=== PATIENT | male | born 1990 | race Hispanic/Latino ===

== ENCOUNTER 2016-10-03 01:43 | Emergency (ER) | payer MEDICAID ==
[2016-10-03 01:59] VITALS: BP 118/76; PULSE 80; RESP 18; TEMP 98.5; O2SAT 100
--- NOTE | 2016-10-03 02:15 | ED PDOC ---
- ECG O2 Sat by Pulse Oximetry: 100
--- NOTE | 2016-10-03 02:15 | ED PDOC ---
HPI: Psych/Substance Abuse Time Seen by Provider: 10/03/16 02:06 Chief Complaint (Nursing): Anxiety Chief Complaint (Provider): Anxiety History Per: Patient Additional Complaint(s): Pt ambulated to ER for eval of anxiety - pt in Police custody Past Medical History Vital Signs: Last Vital Signs Temp 98.5 F 10/03/16 01:57 Pulse 80 10/03/16 01:57 Resp 18 10/03/16 01:57 BP 118/76 10/03/16 01:57 Pulse Ox 100 10/03/16 01:57 - Immunization History Hx Tetanus Toxoid Vaccination: Yes Hx Influenza Vaccination: No Hx Pneumococcal Vaccination: No - Home Medications Home Medications: Ambulatory Orders Medication Instructions Recorded Meloxicam [Mobic] 7.5 mg PO DAILY PRN #30 tab 10/05/15 Methocarbamol [Robaxin] 500 mg PO Q8 #30 tab 10/05/15 - Allergies Allergies/Adverse Reactions: Allergies Allergy/AdvReac Type Severity Reaction Status Date / Time No Known Allergies Allergy Verified 10/05/15 19:39 - ECG O2 Sat by Pulse Oximetry: 100
== END 2016-10-03 05:00 | disposition home or self-care (01) ==
LOC: H.ER 01:43
DX: F41.9 Anxiety disorder, unspecified (principal)

== ENCOUNTER 2016-11-04 23:53 | Emergency (ER) | payer MEDICAID, OTHER ==
[2016-11-05 00:07] VITALS: BP 121/72; PULSE 110; RESP 16; TEMP 98.2; O2SAT 100
[2016-11-05] MEDS ORDERED: Lidocaine 2% w Epi 1:100,000 Inj IJ ONE (00:52)
[2016-11-05] MEDS ORDERED: Lidocaine/Epi 1% 1:100000 20 ML IJ ONE (00:53)
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
--- NOTE | 2016-11-05 02:12 | CT ---
EXAM: CT Head Without Intravenous Contrast CLINICAL HISTORY: 26 years old, male; Injury or trauma; Fall; Initial encounter; Concussion / head injury; Without loss of consciousness TECHNIQUE: Axial computed tomography images of the head/brain without intravenous contrast. This CT exam was performed using one or more of the following dose reduction techniques: automated exposure control, adjustment of the mA and/or kV according to patient size, and/or use of iterative reconstruction technique. Coronal and sagittal reformatted images were created and reviewed. EXAM DATE/TIME: Exam ordered 11/05/2016 12:52 AM COMPARISON: No relevant prior studies available. FINDINGS: Brain: No intracranial hemorrhage. Huertas-white matter differentiation is well maintained and there is no finding to suggest acute edema. Ventricles: Unremarkable. No ventriculomegaly. Bones/joints: Suggestion of nasal fracture series 3 image 5. There is no evidence of acute fracture of the calvarium. Pterygoid plates intact, zygomatic arch is intact. Coronal evaluation of the orbits with no evidence to suggest blowout fracture. Intraconal fat is symmetric and normal limits bilaterally. Soft tissues: There is soft tissue swelling overlying the bridge of the nose Sinuses: Paranasal sinuses within normal limits. Mastoid air cells: Mastoid air cells are clear. IMPRESSION: No calvarial fractures or intracranial hemorrhage. Probable minimally displaced nasal fractures.
--- NOTE | 2016-11-05 02:22 | CT ---
EXAM: CT Maxillofacial Without Intravenous Contrast CLINICAL HISTORY: 26 years old, male; Injury or trauma; Fall; Initial encounter; Concussion /head injury; Without loss of consciousness; Additional info: Facial injury, left periorbital pain TECHNIQUE: Axial computed tomography images of the face without intravenous contrast. This CT exam was performed using one or more of the following dose reduction techniques: automated exposure control, adjustment of the mA and/or kV according to patient size, and/or use of iterative reconstruction technique. Coronal and sagittal reformatted images were created and reviewed. EXAM DATE/TIME: Exam ordered 11/05/2016 12:52 AM COMPARISON: No relevant prior studies available. FINDINGS: Bones/joints: There is very mild irregularity of the nasal bones, minimally displaced nasal fracture questioned, particularly noting apparent overlying soft tissue swelling. Zygomatic arches are bilaterally intact. There is no evidence to suggest fracture of the skull base. The included portions of the cervical spine show no evidence of fractures. No fracture of the mandible is seen. As seen series 602 sagittal image 61, there is suspicion for fracture of the nasal spine with minimal displacement. Soft tissues: There is redemonstration of prominent soft tissue swelling overlying the bridge of the nose. Orbits: Unremarkable. Sinuses: The paranasal sinuses are clear. No air-fluid levels. Mastoid air cells: Mastoid air cells are bilaterally within normal limits. Dental: There is incidental note of lucency adjacent to and likely impaction of the right posterior maxillary molars, dental correlation recommended. Small amount of lucency surrounding the most posterior left maxillary molar. Nasopharynx: There is an incidental finding of mildly prominent adenoids and palatine tonsils. IMPRESSION: Continuing suspicion for minimally displaced fracture of the nasal bones, as well as fracture of the anterior nasal spine. No findings to suggest fracture of the orbits or cervical spine. Paranasal sinuses clear. Correlation with dental examination suggested regarding incidentally seen findings in the teeth, these findings are not related to the present acute trauma
--- NOTE | 2016-11-05 10:22 | RAD ---
PROCEDURE: Left scapula dated 11/05/2016. Two views left scapula. HISTORY: trauma COMPARISON: No prior. FINDINGS: BONES: The visualized scapula appears intact. Remaining on visualized osseous structures are also intact. JOINTS: Normal. Glenohumeral and acromioclavicular joints preserved. No osteoarthritis. SOFT TISSUES: Normal. OTHER FINDINGS: None. IMPRESSION: No evidence of acute displaced fracture of the scapula. If symptoms persist consider followup CT scan.
== END 2016-11-05 02:53 | disposition home or self-care (01) ==
LOC: H.ER 23:53
DX: S09.90XA Unspecified injury of head, initial encounter (principal); S02.2XXA Fracture of nasal bones, initial encounter for closed fracture; S01.01XA Laceration without foreign body of scalp, initial encounter; W19.XXXA Unspecified fall, initial encounter; Y04.0XXA Assault by unarmed brawl or fight, initial encounter

== ENCOUNTER 2017-06-29 07:01 | Inpatient (IN) | payer OTHER ==
[2017-06-29 07:09] VITALS: BMI 26.5
--- NOTE | 2017-06-29 07:57 | ED PDOC ---
HPI: Altered Mental Status Time Seen by Provider: 06/29/17 07:05 Chief Complaint (Nursing): Altered Mental Status Chief Complaint (Provider): Altered Mental Status History Per: Patient, Family (mother and girlfriend) History/Exam Limitations: None Onset/Duration Of Symptoms: Days (x1) Current Symptoms Are (Timing): Still Present Description Of Symptoms: Other (somnolent) Use Of Anticoag/Antiplatlets: No Additional Complaint(s): Natanael Gayle is a 27 year old male, with a past medical history of chronic back problems, and herniated disc, who was brought to the emergency department by EMS accompanied by mother and girlfriend after patient took an unknown amount of Zoldipem and Mirtazapine last night. Patient answers questions but is very somnolent. No further medical complaints. PMD: Dr. Esha Maradiaga (has not met him yet per girlfriend) Past Medical History Reviewed: Historical Data, Nursing Documentation, Vital Signs Vital Signs: Last Vital Signs Temp 98.5 F 06/29/17 07:28 Pulse 105 H 06/29/17 07:28 Resp 18 06/29/17 07:28 BP 152/95 H 06/29/17 07:28 Pulse Ox 97 06/29/17 07:28 - Medical History PMH: Anxiety Denies: Diabetes, Hepatitis, HIV, HTN, Seizures, Sexually Transmitted Disease - Surgical History Surgical History: No Surg Hx - Family History Family History: States: Unknown Family Hx - Social History Current smoker - smoking cessation education provided: No Alcohol: None Drugs: Denies - Immunization History Hx Tetanus Toxoid Vaccination: Yes Hx Influenza Vaccination: No Hx Pneumococcal Vaccination: No - Home Medications Home Medications: Ambulatory Orders Medication Instructions Recorded Mirtazapine [Remeron] 2 tab PO HS 06/29/17 Zolpidem Tartrate [Ambien] 10 mg PO HS 06/29/17 - Allergies Allergies/Adverse Reactions: Allergies Allergy/AdvReac Type Severity Reaction Status Date / Time No Known Allergies Allergy Verified 10/05/15 19:39 Review of Systems ROS Statement: Except As Marked, All Systems Reviewed And Found Negative Constitutional: Positive for: Other (appears somnolent) Physical Exam - Reviewed Nursing Documentation Reviewed: Yes Vital Signs Reviewed: Yes - Physical Exam Appears: Positive for: Non-toxic Head Exam: Positive for: ATRAUMATIC, NORMAL INSPECTION Skin: Positive for: Normal Color, Warm, Dry Neck: Positive for: Normal, Painless ROM, Supple Cardiovascular/Chest: Positive for: Regular Rate, Rhythm. Negative for: Murmur Respiratory: Positive for: Normal Breath Sounds. Negative for: Respiratory Distress Gastrointestinal/Abdominal: Positive for: Soft Extremity: Positive for: Normal ROM Neurologic/Psych: Positive for: Alert (somnolent) Comments: Appears somnolent - Laboratory Results Result Diagrams: 06/29/17 08:35 06/29/17 09:40 - ECG ECG Rhythm: Positive for: Sinus Rhythm (normal) Interpretation Of ECG: No ST elevation, No ST depression Rate: 100 O2 Sat by Pulse Oximetry: 97 (RA) Pulse Ox Interpretation: Normal - Critical Care Total Time (In Min): 20 Medical Decision Making Medical Decision Making: Initial Impression: AMS r/o electrolyte imbalance, drug abuse Initial Plan: --Acetaminophen --Alcohol serum --Basic Metabolic Panel --Drug screen, urine --Salicylate --CBC w/ differential --Urinalysis 1:1 sitter --reevaluation 10:10 -Elevated Tylenol noted. Further history was obtained now that girlfriend is here. According to her, patient has a history of bipolar disorder and anxiety. He was recently placed on new medications but took a lot more than usual. Patient has been taking Tylenol at home "to the max". -According to poison control, place patient on Acetadote. Ordered the first dose and paged Dr. Francis. Called the claim review medical director to admit patient to ICU. 10:15 -Dr. Francis accepted the patient pt. noted to have cocaine in urine. pt reevaluated. family at bedside. answered questions and discussed plan. pt airway intact. pt intermittently has episodes of agitation and tries to jump out of bed, but then calms down. Scribe Attestation: Documented by Jt Courtney, acting as a scribe for Chris Lipscomb MD Provider Scribe Attestation: All medical record entries made by the Scribe were at my direction and personally dictated by me. I have reviewed the chart and agree that the record accurately reflects my personal performance of the history, physical exam, medical decision making, and the department course for this patient. I have also personally directed, reviewed, and agree with the discharge instructions and disposition. Disposition - Clinical Impression Clinical Impression: Altered mental status, Tylenol overdose - Patient ED Disposition Is Patient to be Admitted: Yes Counseled Patient/Family Regarding: Diagnosis - Disposition Disposition Time: 09:00 Condition: STABLE - Pt Status Changed To: Hospital Disposition Of: Inpatient - Admit Certification Admit to Inpatient:: After my assessment, the patient will require hospitalization for at least two midnights. This is because of the severity of symptoms shown, intensity of services needed, and/or the medical risk in this patient being treated as an outpatient.
[2017-06-29 08:41] LABS: BASO % 0.2 % (0.0-2.0); EOS % 0.3 % (0.0-4.0); HEMATOCRIT 46.2 % (35.0-51.0); LYMPH # 0.6 K/uL (1.0-4.3); LYMPH % 7.9 % (20.0-40.0); MEAN CELL VOLUME 86.1 fl (80.0-94.0); MEAN CORPUSCULAR HEMOGLOBIN 29.8 pg (27.0-31.0); MEAN CORPUSCULAR HGB CONC 34.6 g/dL (33.0-37.0); MEAN PLATELET VOLUME 7.4 fl (7.2-11.7); MONO # 0.7 K/uL (0.0-0.8); MONO % 8.8 % (0.0-10.0); NEUT # 6.2 K/uL (1.8-7.0); NEUT % 82.8 % (50.0-75.0); PLATELET COUNT 335 K/uL (130-400); RED CELL DISTRIBUTION WIDTH 12.3 % (11.5-14.5); WHITE BLOOD COUNT 7.5 K/uL (4.8-10.8)
[2017-06-29] MEDS ORDERED: Sodium Chloride 0.9% 1,000 ML IV STA (08:41)
[2017-06-29 08:57] LABS: ALCOHOL SERUM < 10 mg/dl (0-10); BLOOD UREA NITROGEN 14 mg/dl (9-20); CALCIUM 9.9 mg/dL (8.4-10.2); CARBON DIOXIDE 25 mmol/L (22-30); CHLORIDE 104 mmol/L (98-107); GFR AFRICAN-AMERICAN > 60; GLUCOSE,RANDOM 116 mg/dL (75-110); SODIUM 141 mmol/l (132-148)
[2017-06-29 09:38] LABS: NEUTROPHIL 81 % (42-75); REACTIVE LYMPHOCYTES 2 % (0-0); TOTAL CELLS COUNTED 100
[2017-06-29 09:44] LABS: RBC URINE 1 /hpf (0-3); URINE BILIRUBIN NEGATIVE (NEGATIVE); URINE BLOOD NEGATIVE (NEGATIVE); URINE COLOR YELLOW (YELLOW); URINE GLUCOSE (UA) NEG (Normal); URINE KETONE NEGATIVE (NEGATIVE); URINE LEUKOCYTE ESTERASE NEG Leu/uL (Negative); URINE PROTEIN NEGATIVE (NEGATIVE); URINE UROBILINOGEN 0.2-1.0 mg/dL (0.2-1.0); WBC URINE < 1 /hpf (0-5)
[2017-06-29] MEDS ORDERED: WATER IVPB STA ×3 (10:00→12:41)
[2017-06-29] MEDS ORDERED: DEXTROSE 5% IVPB STA ×3 (10:00→12:41)
[2017-06-29] MEDS ORDERED: ACETYLCYSTEINE IVPB STA ×3 (10:00→12:41)
[2017-06-29 10:01] LABS: PARTIAL THROMBOPLASTIN TIME 30.1 Seconds (25.6-37.1)
[2017-06-29 10:05] LABS: ALB/GLOB RATIO 1.3 (1.0-2.1); ALKALINE PHOSPHATASE 59 U/L (38-126); ALT/SGPT 72 U/L (21-72); AST/SGOT 50 U/L (17-59); BILIRUBIN,TOTAL 0.4 mg/dl (0.2-1.3); BLOOD UREA NITROGEN 13 mg/dl (9-20); CALCIUM 9.5 mg/dL (8.4-10.2); CARBON DIOXIDE 26 mmol/L (22-30); CHLORIDE 105 mmol/L (98-107); GFR AFRICAN-AMERICAN > 60; GLUCOSE,RANDOM 111 mg/dL (75-110); POTASSIUM 4.1 MMOL/L (3.6-5.0); SODIUM 139 mmol/l (132-148); TOTAL PROTEIN 7.6 G/DL (6.3-8.2)
--- NOTE | 2017-06-29 12:30 | CP.CCUPN ---
CCU Subjective - Physician Review Subjective (Free Text): 27M admitted from ED for somnolence and lethargy post ingestion of multiple doses of Ambien and possible other pain medications in order to sleep last evening. Arrived to ED at 728AM post-ingestion overnight. Time of ingestion unknown and not reported by family / girlfriend. Patient is uncooperative when awakened, irate and not providing any useful history. He is on 1:1. UDS showed + cocaine and a Acetaminophen level of 44. Home meds only include Remeron and Ambien, but mother states he takes Percocet, too. Other vitals and I/O's reviewed. Allergies: NKDA ROS: Uncooperative with questioning. No other pertinent negs or positives on 10 + system review. PMSFH: All other Nursing and physician documentation reviewed to date; no new pertinent info noted relevant to current medical problems. CXR: none ordered in ER. EKG: none ordered in ER. IMPRESSION / MAJOR PROBLEMS NOW: 1. Multiple Medication OD with Ambien and Remeron, also Tylenol 2. Hypertensive response 2' Agitation 3. h/o Bi-Polar and Anxiety Disorder 4. h/o Chronic LBP syndrome with Herniated Disc Disease 2 Fall 3 yrs ago. PLAN: 1. Acetadote as per Poison Control recs. 2. IVF hydration. 3. Neurochecks/ Seizure precautions. 4. Maintain 1:1; Psychiatry eval. 5. As mental status has improved over time from time of initial ER eval, and he is now awake and interactive with Mother and Girlfriend, could continue observation and mgmt on Telemetry unit; unless there is a unexpected deterioration in LFTs, or if he needs airway protection. 6. Would hold narcotics for pain control if possible. 7. Woiuld not treat isolated hypertensive repsonses, unless sustained elevations in MAP above 110-120. CCU Objective - Vital Signs / Intake & Output Vital Signs (Last 4 hours): Vital Signs Pulse Pulse Ox 06/29/17 10:57 100 H 06/29/17 10:23 100 H 97 Intake and Output (Last 8hrs): Intake & Output 06/28/17 06/29/17 06/29/17 22:59 06:59 14:59 Weight 215 lb - Physical Exam Physical Exam Limitations: Positive for: Uncooperative Head: Positive for: Atraumatic, Normocephalic Pupils: Positive for: PERRL. Negative for: Pinpoint Extroacular Muscles: Positive for: EOMI. Negative for: Gaze Palsy Conjunctiva: Positive for: Normal Mouth: Positive for: Moist Mucous Membranes Neck: Negative for: Meningeal Signs, JVD Respiratory/Chest: Positive for: Clear to Auscultation. Negative for: Accessory Muscle Use, Wheezes Cardiovascular: Positive for: Regular Rate and Rhythm, Normal S1, S2, Tachycardic Abdomen: Positive for: Normal Bowel Sounds. Negative for: Tenderness, Distention, Mass/Organomegaly Upper Extremity: Positive for: Normal Inspection Lower Extremity: Positive for: Normal Inspection, Other (HOME INCARCERATION GPS ANKLE BRACELET OVER THE RIGHT ANKLE. ) Skin: Positive for: Warm, Dry, Other (muliple large tattoos scattered over entire body. ). Negative for: Rashes - Medications Active Medications: Active Medications Generic Name Dose Route Start Last Admin Trade Name Freq PRN Reason Stop Dose Admin Sodium Chloride 1,000 mls @ 150 mls/hr 06/29/17 08:41 06/29/17 08:42 Sodium Chloride 0.9% IV 06/29/17 15:20 150 mls/hr .[id number] STA Administration - Patient Studies Lab Studies: Lab Studies 06/29/17 06/29/17 06/29/17 Range/Units 09:40 09:40 09:39 WBC (4.8-10.8) K/uL RBC (4.40-5.90) Mil/uL Hgb (12.0-18.0) g/dL Hct (35.0-51.0) % MCV (80.0-94.0) fl MCH (27.0-31.0) pg MCHC (33.0-37.0) g/dL RDW (11.5-14.5) % Plt Count (130-400) K/uL MPV (7.2-11.7) fl Neut % (Auto) (50.0-75.0) % Lymph % (Auto) (20.0-40.0) % [place] % (Auto) (0.0-10.0) % Eos % (Auto) (0.0-4.0) % Baso % (Auto) (0.0-2.0) % Neut # (1.8-7.0) K/uL Lymph # (1.0-4.3) K/uL [place] # (0.0-0.8) K/uL Eos # (0.0-0.7) K/uL Baso # (0.0-0.2) K/uL Neutrophils % (Manual) (42-75) % Band Neutrophils % (0-2) % Lymphocytes % (Manual) (20-50) % Reactive Lymphs % (0-0) % Monocytes % (Manual) (0-10) % Platelet Estimate (NORMAL) RBC Morphology (NORMAL) PT 10.9 (9.8-13.1) Seconds INR 1.0 (0.9-1.2) APTT 30.1 (25.6-37.1) Seconds Sodium 139 (132-148) mmol/l Potassium 4.1 (3.6-5.0) MMOL/L Chloride 105 (98-107) mmol/L Carbon Dioxide 26 (22-30) mmol/L Anion Gap 12 (10-20) BUN 13 (9-20) mg/dl Creatinine 1.0 (0.8-1.5) mg/dl Est GFR ( Amer) > 60 Est GFR (Non-Af Amer) > 60 Random Glucose 111 H (75-110) mg/dL Calcium 9.5 (8.4-10.2) mg/dL Total Bilirubin 0.4 (0.2-1.3) mg/dl AST 50 (17-59) U/L ALT 72 (21-72) U/L Alkaline Phosphatase 59 (38-126) U/L Total Protein 7.6 (6.3-8.2) G/DL Albumin 4.4 (3.5-5.0) g/dL Globulin 3.3 (2.2-3.9) gm/dL Albumin/Globulin Ratio 1.3 (1.0-2.1) Urine Color (YELLOW) Urine Clarity (Clear) Urine pH (5.0-8.0) Ur Specific [place] (1.003-1.030) Urine Protein (NEGATIVE) mg/dL Urine Glucose (UA) (Normal) mg/dL Urine Ketones (NEGATIVE) mg/dL Urine Blood (NEGATIVE) Urine Nitrate (NEGATIVE) Urine Bilirubin (NEGATIVE) Urine Urobilinogen (0.2-1.0) mg/dL Ur Leukocyte Esterase (Negative) Jhony/uL Urine RBC (Auto) (0-3) /hpf Urine Microscopic WBC (0-5) /hpf Ur Squamous Epith Cells (0-5) /hpf Salicylates < 1.0 mg/dl Urine Opiates Screen (NEGATIVE) Urine Methadone Screen (NEGATIVE) Acetaminophen (10.0-30.0) ug/ml Ur Barbiturates Screen (NEGATIVE) Ur Phencyclidine Scrn (NEGATIVE) Ur Amphetamines Screen (NEGATIVE) U Benzodiazepines Scrn (NEGATIVE) U Oth Cocaine Metabols (NEGATIVE) U Cannabinoids Screen (NEGATIVE) Alcohol, Quantitative (0-10) mg/dl 06/29/17 06/29/17 06/29/17 Range/Units 09:00 09:00 08:36 WBC (4.8-10.8) K/uL RBC (4.40-5.90) Mil/uL Hgb (12.0-18.0) g/dL Hct (35.0-51.0) % MCV (80.0-94.0) fl MCH (27.0-31.0) pg MCHC (33.0-37.0) g/dL RDW (11.5-14.5) % Plt Count (130-400) K/uL MPV (7.2-11.7) fl Neut % (Auto) (50.0-75.0) % Lymph % (Auto) (20.0-40.0) % [place] % (Auto) (0.0-10.0) % Eos % (Auto) (0.0-4.0) % Baso % (Auto) (0.0-2.0) % Neut # (1.8-7.0) K/uL Lymph # (1.0-4.3) K/uL [place] # (0.0-0.8) K/uL Eos # (0.0-0.7) K/uL Baso # (0.0-0.2) K/uL Neutrophils % (Manual) (42-75) % Band Neutrophils % (0-2) % Lymphocytes % (Manual) (20-50) % Reactive Lymphs % (0-0) % Monocytes % (Manual) (0-10) % Platelet Estimate (NORMAL) RBC Morphology (NORMAL) PT (9.8-13.1) Seconds INR (0.9-1.2) APTT (25.6-37.1) Seconds Sodium 141 (132-148) mmol/l Potassium 4.0 (3.6-5.0) MMOL/L Chloride 104 (98-107) mmol/L Carbon Dioxide 25 (22-30) mmol/L Anion Gap 16 (10-20) BUN 14 (9-20) mg/dl Creatinine 1.0 (0.8-1.5) mg/dl Est GFR ( Amer) > 60 Est GFR (Non-Af Amer) > 60 Random Glucose 116 H (75-110) mg/dL Calcium 9.9 (8.4-10.2) mg/dL Total Bilirubin (0.2-1.3) mg/dl AST (17-59) U/L ALT (21-72) U/L Alkaline Phosphatase (38-126) U/L Total Protein (6.3-8.2) G/DL Albumin (3.5-5.0) g/dL Globulin (2.2-3.9) gm/dL Albumin/Globulin Ratio (1.0-2.1) Urine Color Yellow (YELLOW) Urine Clarity Clear (Clear) Urine pH 5.0 (5.0-8.0) Ur Specific [place] 1.033 H (1.003-1.030) Urine Protein Negative (NEGATIVE) mg/dL Urine Glucose (UA) Neg (Normal) mg/dL Urine Ketones Negative (NEGATIVE) mg/dL Urine Blood Negative (NEGATIVE) Urine Nitrate Negative (NEGATIVE) Urine Bilirubin Negative (NEGATIVE) Urine Urobilinogen 0.2-1.0 (0.2-1.0) mg/dL Ur Leukocyte Esterase Neg (Negative) Jhony/uL Urine RBC (Auto) 1 (0-3) /hpf Urine Microscopic WBC < 1 (0-5) /hpf Ur Squamous Epith Cells < 1 (0-5) /hpf Salicylates mg/dl Urine Opiates Screen Negative (NEGATIVE) Urine Methadone Screen Negative (NEGATIVE) Acetaminophen (10.0-30.0) ug/ml Ur Barbiturates Screen Negative (NEGATIVE) Ur Phencyclidine Scrn Negative (NEGATIVE) Ur Amphetamines Screen Negative (NEGATIVE) U Benzodiazepines Scrn Negative (NEGATIVE) U Oth Cocaine Metabols Positive H (NEGATIVE) U Cannabinoids Screen Negative (NEGATIVE) Alcohol, Quantitative < 10 (0-10) mg/dl 06/29/17 06/29/17 Range/Units 08:36 08:35 WBC 7.5 (4.8-10.8) K/uL RBC 5.37 (4.40-5.90) Mil/uL Hgb 16.0 (12.0-18.0) g/dL Hct 46.2 (35.0-51.0) % MCV 86.1 (80.0-94.0) fl MCH 29.8 (27.0-31.0) pg MCHC 34.6 (33.0-37.0) g/dL RDW 12.3 (11.5-14.5) % Plt Count 335 (130-400) K/uL MPV 7.4 (7.2-11.7) fl Neut % (Auto) 82.8 H (50.0-75.0) % Lymph % (Auto) 7.9 L (20.0-40.0) % [place] % (Auto) 8.8 (0.0-10.0) % Eos % (Auto) 0.3 (0.0-4.0) % Baso % (Auto) 0.2 (0.0-2.0) % Neut # 6.2 (1.8-7.0) K/uL Lymph # 0.6 L (1.0-4.3) K/uL [place] # 0.7 (0.0-0.8) K/uL Eos # 0.0 (0.0-0.7) K/uL Baso # 0.0 (0.0-0.2) K/uL Neutrophils % (Manual) 81 H (42-75) % Band Neutrophils % 1 (0-2) % Lymphocytes % (Manual) 5 L (20-50) % Reactive Lymphs % 2 H (0-0) % Monocytes % (Manual) 11 H (0-10) % Platelet Estimate Normal (NORMAL) RBC Morphology Normal (NORMAL) PT (9.8-13.1) Seconds INR (0.9-1.2) APTT (25.6-37.1) Seconds Sodium (132-148) mmol/l Potassium (3.6-5.0) MMOL/L Chloride (98-107) mmol/L Carbon Dioxide (22-30) mmol/L Anion Gap (10-20) BUN (9-20) mg/dl Creatinine (0.8-1.5) mg/dl Est GFR ( Amer) Est GFR (Non-Af Amer) Random Glucose (75-110) mg/dL Calcium (8.4-10.2) mg/dL Total Bilirubin (0.2-1.3) mg/dl AST (17-59) U/L ALT (21-72) U/L Alkaline Phosphatase (38-126) U/L Total Protein (6.3-8.2) G/DL Albumin (3.5-5.0) g/dL Globulin (2.2-3.9) gm/dL Albumin/Globulin Ratio (1.0-2.1) Urine Color (YELLOW) Urine Clarity (Clear) Urine pH (5.0-8.0) Ur Specific [place] (1.003-1.030) Urine Protein (NEGATIVE) mg/dL Urine Glucose (UA) (Normal) mg/dL Urine Ketones (NEGATIVE) mg/dL Urine Blood (NEGATIVE) Urine Nitrate (NEGATIVE) Urine Bilirubin (NEGATIVE) Urine Urobilinogen (0.2-1.0) mg/dL Ur Leukocyte Esterase (Negative) Jhony/uL Urine RBC (Auto) (0-3) /hpf Urine Microscopic WBC (0-5) /hpf Ur Squamous Epith Cells (0-5) /hpf Salicylates mg/dl Urine Opiates Screen (NEGATIVE) Urine Methadone Screen (NEGATIVE) Acetaminophen 44.0 H (10.0-30.0) ug/ml Ur Barbiturates Screen (NEGATIVE) Ur Phencyclidine Scrn (NEGATIVE) Ur Amphetamines Screen (NEGATIVE) U Benzodiazepines Scrn (NEGATIVE) U Oth Cocaine Metabols (NEGATIVE) U Cannabinoids Screen (NEGATIVE) Alcohol, Quantitative (0-10) mg/dl Laboratory Results - last 24 hr 06/29/17 06/29/17 06/29/17 08:35 08:36 08:36 WBC 7.5 RBC 5.37 Hgb 16.0 Hct 46.2 MCV 86.1 MCH 29.8 MCHC 34.6 RDW 12.3 Plt Count 335 MPV 7.4 Neut % (Auto) 82.8 H Lymph % (Auto) 7.9 L [place] % (Auto) 8.8 Eos % (Auto) 0.3 Baso % (Auto) 0.2 Neut # 6.2 Lymph # 0.6 L [place] # 0.7 Eos # 0.0 Baso # 0.0 Neutrophils % (Manual) 81 H Band Neutrophils % 1 Lymphocytes % (Manual) 5 L Reactive Lymphs % 2 H Monocytes % (Manual) 11 H Platelet Estimate Normal RBC Morphology Normal PT INR APTT Sodium 141 Potassium 4.0 Chloride 104 Carbon Dioxide 25 Anion Gap 16 BUN 14 Creatinine 1.0 Est GFR ( Amer) > 60 Est GFR (Non-Af Amer) > 60 Random Glucose 116 H Calcium 9.9 Total Bilirubin AST ALT Alkaline Phosphatase Total Protein Albumin Globulin Albumin/Globulin Ratio Urine Color Urine Clarity Urine pH Ur Specific [place] Urine Protein Urine Glucose (UA) Urine Ketones Urine Blood Urine Nitrate Urine Bilirubin Urine Urobilinogen Ur Leukocyte Esterase Urine RBC (Auto) Urine Microscopic WBC Ur Squamous Epith Cells Salicylates Urine Opiates Screen Urine Methadone Screen Acetaminophen 44.0 H Ur Barbiturates Screen Ur Phencyclidine Scrn Ur Amphetamines Screen U Benzodiazepines Scrn U Oth Cocaine Metabols U Cannabinoids Screen Alcohol, Quantitative < 10 06/29/17 06/29/17 06/29/17 09:00 09:00 09:39 WBC RBC Hgb Hct MCV MCH MCHC RDW Plt Count MPV Neut % (Auto) Lymph % (Auto) [place] % (Auto) Eos % (Auto) Baso % (Auto) Neut # Lymph # [place] # Eos # Baso # Neutrophils % (Manual) Band Neutrophils % Lymphocytes % (Manual) Reactive Lymphs % Monocytes % (Manual) Platelet Estimate RBC Morphology PT INR APTT Sodium Potassium Chloride Carbon Dioxide Anion Gap BUN Creatinine Est GFR ( Amer) Est GFR (Non-Af Amer) Random Glucose Calcium Total Bilirubin AST ALT Alkaline Phosphatase Total Protein Albumin Globulin Albumin/Globulin Ratio Urine Color Yellow Urine Clarity Clear Urine pH 5.0 Ur Specific [place] 1.033 H Urine Protein Negative Urine Glucose (UA) Neg Urine Ketones Negative Urine Blood Negative Urine Nitrate Negative Urine Bilirubin Negative Urine Urobilinogen 0.2-1.0 Ur Leukocyte Esterase Neg Urine RBC (Auto) 1 Urine Microscopic WBC < 1 Ur Squamous Epith Cells < 1 Salicylates < 1.0 Urine Opiates Screen Negative Urine Methadone Screen Negative Acetaminophen Ur Barbiturates Screen Negative Ur Phencyclidine Scrn Negative Ur Amphetamines Screen Negative U Benzodiazepines Scrn Negative U Oth Cocaine Metabols Positive H U Cannabinoids Screen Negative Alcohol, Quantitative 06/29/17 06/29/17 09:40 09:40 WBC RBC Hgb Hct MCV MCH MCHC RDW Plt Count MPV Neut % (Auto) Lymph % (Auto) [place] % (Auto) Eos % (Auto) Baso % (Auto) Neut # Lymph # [place] # Eos # Baso # Neutrophils % (Manual) Band Neutrophils % Lymphocytes % (Manual) Reactive Lymphs % Monocytes % (Manual) Platelet Estimate RBC Morphology PT 10.9 INR 1.0 APTT 30.1 Sodium 139 Potassium 4.1 Chloride 105 Carbon Dioxide 26 Anion Gap 12 BUN 13 Creatinine 1.0 Est GFR ( Amer) > 60 Est GFR (Non-Af Amer) > 60 Random Glucose 111 H Calcium 9.5 Total Bilirubin 0.4 AST 50 ALT 72 Alkaline Phosphatase 59 Total Protein 7.6 Albumin 4.4 Globulin 3.3 Albumin/Globulin Ratio 1.3 Urine Color Urine Clarity Urine pH Ur Specific [place] Urine Protein Urine Glucose (UA) Urine Ketones Urine Blood Urine Nitrate Urine Bilirubin Urine Urobilinogen Ur Leukocyte Esterase Urine RBC (Auto) Urine Microscopic WBC Ur Squamous Epith Cells Salicylates Urine Opiates Screen Urine Methadone Screen Acetaminophen Ur Barbiturates Screen Ur Phencyclidine Scrn Ur Amphetamines Screen U Benzodiazepines Scrn U Oth Cocaine Metabols U Cannabinoids Screen Alcohol, Quantitative Review of Systems - Review of Systems Systems not reviewed;Unavailable: Uncooperative
[2017-06-29] MEDS ORDERED: Pneumococcal 23-Valent Vaccine IM ONE (13:07)
--- NOTE | 2017-06-29 14:21 | CP.PCM.CON ---
History of Present Illness - History of Present Illness History of Present Illness: pt is a 27 years old male admitted from ED for somnolence and lethargy post ingestion of multiple doses of Ambien and possible other pain medications in order to sleep last evening consult requested to rule out possible overdose and suicidal attempt pt with previous psychiatric diagnosis of ADD impulse control disorder, multiple admission to [facility] [place] as per mother in psychiatric treatment since age 7 pt hs also been admitted to [facility] for an episode of poor impulse control has been placed on risperidone injection but non compliant due to weight gain currently follows up with private psychiatrist placed on ambien and remeron, pt also receiving percocet for back pain pt indicated that he has severe back pain and so the night before admission as he wanted to go to work to get the [employer] he used mor of pain medications and ambien to relieve the pain sleep and be able to work pt denied any current depression symptoms denied psychotic symptoms. denied suicidal or homicidal ideations reported using cannabis and alcohol, urine toxicology was also positive for cocaine collateral information obtained from both mother and girl friend living with pt , both denied any current symptoms or signs of depression for the pt denied any concerns about possibility of overdose or suicidal attempt Past Patient History - Infectious Disease Hx of Infectious Diseases: None - Past Social History Smoking Status: Current Some Days Smoker - CARDIAC Hx Cardiac Disorders: No - PULMONARY Hx Respiratory Disorders: No Hx Tuberculosis: No - NEUROLOGICAL Hx Seizures: No - ENDOCRINE/METABOLIC Hx Endocrine Disorders: No - HEMATOLOGICAL/ONCOLOGICAL Hx Blood Disorders: No Hx Cancer: No Hx Human Immunodeficiency Virus (HIV): No - MUSCULOSKELETAL/RHEUMATOLOGICAL Hx Musculoskeletal Disorders: Yes Hx Falls: Yes Hx Fractures: Yes Other/Comment: Chronic back pain - GASTROINTESTINAL Hx Gastrointestinal Disorders: No - GENITOURINARY/GYNECOLOGICAL Hx Sexually Transmitted Disorders: No - PSYCHIATRIC Hx Psychophysiologic Disorder: Yes Hx Anxiety: Yes Hx Depression: Yes Hx Substance Use: Yes - SURGICAL HISTORY Hx Surgeries: Yes Other/Comment: left ankle surgery 2013 - ANESTHESIA Hx Anesthesia: Yes Hx Anesthesia Reactions: No Meds Allergies/Adverse Reactions: Allergies Allergy/AdvReac Type Severity Reaction Status Date / Time No Known Allergies Allergy Verified 10/05/15 19:39 - Medications Medications: Current Medications Sodium Chloride (Sodium Chloride 0.9%) 1,000 mls @ 150 mls/hr IV .[id number] STA Stop: 06/29/17 15:20 Last Admin: 06/29/17 08:42 Dose: 150 mls/hr Acetylcysteine 4,850 mg/ (Dextrose) 524.25 mls @ 131.063 mls/hr IVPB STAT STA Stop: 06/29/17 16:40 Acetylcysteine 9,700 mg/ (Dextrose) 1,048.5 mls @ 65.531 mls/hr IVPB ONCE ONE Stop: 06/30/17 10:59 Physical Exam - Psychiatric Exam Additional comments: pt seen in a chair, cooperative , in hospital gown, anxious mood and affect, thought form circumstantial. speech loud, episodes of thought blocking possibly due to drowziness due to the overdose denied suicidal or homicidal ideations denied perceptual disturbances , fair insight and poor judgement Results - Vital Signs Recent Vital Signs: Last Vital Signs Temp 98.5 F 06/29/17 07:28 Pulse 100 H 06/29/17 12:13 Resp 14 06/29/17 12:13 BP 152/95 H 06/29/17 07:28 Pulse Ox 97 06/29/17 10:23 - Labs Result Diagrams: 06/29/17 08:35 06/29/17 09:40 Labs: Laboratory Results - last 24 hr 06/29/17 06/29/17 06/29/17 08:35 08:36 08:36 WBC 7.5 RBC 5.37 Hgb 16.0 Hct 46.2 MCV 86.1 MCH 29.8 MCHC 34.6 RDW 12.3 Plt Count 335 MPV 7.4 Neut % (Auto) 82.8 H Lymph % (Auto) 7.9 L [place] % (Auto) 8.8 Eos % (Auto) 0.3 Baso % (Auto) 0.2 Neut # 6.2 Lymph # 0.6 L [place] # 0.7 Eos # 0.0 Baso # 0.0 Neutrophils % (Manual) 81 H Band Neutrophils % 1 Lymphocytes % (Manual) 5 L Reactive Lymphs % 2 H Monocytes % (Manual) 11 H Platelet Estimate Normal RBC Morphology Normal PT INR APTT Sodium 141 Potassium 4.0 Chloride 104 Carbon Dioxide 25 Anion Gap 16 BUN 14 Creatinine 1.0 Est GFR ( Amer) > 60 Est GFR (Non-Af Amer) > 60 Random Glucose 116 H Calcium 9.9 Total Bilirubin AST ALT Alkaline Phosphatase Total Protein Albumin Globulin Albumin/Globulin Ratio Urine Color Urine Clarity Urine pH Ur Specific [place] Urine Protein Urine Glucose (UA) Urine Ketones Urine Blood Urine Nitrate Urine Bilirubin Urine Urobilinogen Ur Leukocyte Esterase Urine RBC (Auto) Urine Microscopic WBC Ur Squamous Epith Cells Salicylates Urine Opiates Screen Urine Methadone Screen Acetaminophen 44.0 H Ur Barbiturates Screen Ur Phencyclidine Scrn Ur Amphetamines Screen U Benzodiazepines Scrn U Oth Cocaine Metabols U Cannabinoids Screen Alcohol, Quantitative < 10 06/29/17 06/29/17 06/29/17 09:00 09:00 09:39 WBC RBC Hgb Hct MCV MCH MCHC RDW Plt Count MPV Neut % (Auto) Lymph % (Auto) [place] % (Auto) Eos % (Auto) Baso % (Auto) Neut # Lymph # [place] # Eos # Baso # Neutrophils % (Manual) Band Neutrophils % Lymphocytes % (Manual) Reactive Lymphs % Monocytes % (Manual) Platelet Estimate RBC Morphology PT INR APTT Sodium Potassium Chloride Carbon Dioxide Anion Gap BUN Creatinine Est GFR ( Amer) Est GFR (Non-Af Amer) Random Glucose Calcium Total Bilirubin AST ALT Alkaline Phosphatase Total Protein Albumin Globulin Albumin/Globulin Ratio Urine Color Yellow Urine Clarity Clear Urine pH 5.0 Ur Specific [place] 1.033 H Urine Protein Negative Urine Glucose (UA) Neg Urine Ketones Negative Urine Blood Negative Urine Nitrate Negative Urine Bilirubin Negative Urine Urobilinogen 0.2-1.0 Ur Leukocyte Esterase Neg Urine RBC (Auto) 1 Urine Microscopic WBC < 1 Ur Squamous Epith Cells < 1 Salicylates < 1.0 Urine Opiates Screen Negative Urine Methadone Screen Negative Acetaminophen Ur Barbiturates Screen Negative Ur Phencyclidine Scrn Negative Ur Amphetamines Screen Negative U Benzodiazepines Scrn Negative U Oth Cocaine Metabols Positive H U Cannabinoids Screen Negative Alcohol, Quantitative 06/29/17 06/29/17 09:40 09:40 WBC RBC Hgb Hct MCV MCH MCHC RDW Plt Count MPV Neut % (Auto) Lymph % (Auto) [place] % (Auto) Eos % (Auto) Baso % (Auto) Neut # Lymph # [place] # Eos # Baso # Neutrophils % (Manual) Band Neutrophils % Lymphocytes % (Manual) Reactive Lymphs % Monocytes % (Manual) Platelet Estimate RBC Morphology PT 10.9 INR 1.0 APTT 30.1 Sodium 139 Potassium 4.1 Chloride 105 Carbon Dioxide 26 Anion Gap 12 BUN 13 Creatinine 1.0 Est GFR ( Amer) > 60 Est GFR (Non-Af Amer) > 60 Random Glucose 111 H Calcium 9.5 Total Bilirubin 0.4 AST 50 ALT 72 Alkaline Phosphatase 59 Total Protein 7.6 Albumin 4.4 Globulin 3.3 Albumin/Globulin Ratio 1.3 Urine Color Urine Clarity Urine pH Ur Specific [place] Urine Protein Urine Glucose (UA) Urine Ketones Urine Blood Urine Nitrate Urine Bilirubin Urine Urobilinogen Ur Leukocyte Esterase Urine RBC (Auto) Urine Microscopic WBC Ur Squamous Epith Cells Salicylates Urine Opiates Screen Urine Methadone Screen Acetaminophen Ur Barbiturates Screen Ur Phencyclidine Scrn Ur Amphetamines Screen U Benzodiazepines Scrn U Oth Cocaine Metabols U Cannabinoids Screen Alcohol, Quantitative Assessment & Plan - Assessment and Plan (Free Text) Assessment: impulse control disorder opiate use disorder cannabis use disorder cocaine use disorder pt at current mental staus denied suicidal or homicidal ideations denied command hallucinations at current mental staus not danger to self or others pt cleared psychiatricaly for discharge after medical clearence pt could benifit from being started on mood stabilizer May rn social services provide pt with referrals to outpatient rehab and psychiatric treatment possibly [facility] - Date & Time Date: 06/29/17 Time: 14:20
--- NOTE | 2017-06-29 15:05 | CP.PCM.CON ---
History of Present Illness - History of Present Illness History of Present Illness: FOLLOW UP CONSULT CONSULT REQUESTED TO EVALUATE CAPACITY OF PT TO MAKE DECISION TO SIGN AGAINST MEDICAL ADVISE Past Patient History - Infectious Disease Hx of Infectious Diseases: None - Past Social History Smoking Status: Current Some Days Smoker - CARDIAC Hx Cardiac Disorders: No - PULMONARY Hx Respiratory Disorders: No Hx Tuberculosis: No - NEUROLOGICAL Hx Seizures: No - ENDOCRINE/METABOLIC Hx Endocrine Disorders: No - HEMATOLOGICAL/ONCOLOGICAL Hx Blood Disorders: No Hx Cancer: No Hx Human Immunodeficiency Virus (HIV): No - MUSCULOSKELETAL/RHEUMATOLOGICAL Hx Musculoskeletal Disorders: Yes Hx Falls: Yes Hx Fractures: Yes Other/Comment: Chronic back pain - GASTROINTESTINAL Hx Gastrointestinal Disorders: No - GENITOURINARY/GYNECOLOGICAL Hx Sexually Transmitted Disorders: No - PSYCHIATRIC Hx Psychophysiologic Disorder: Yes Hx Anxiety: Yes Hx Depression: Yes Hx Substance Use: Yes - SURGICAL HISTORY Hx Surgeries: Yes Other/Comment: left ankle surgery 2014 - ANESTHESIA Hx Anesthesia: Yes Hx Anesthesia Reactions: No Meds Allergies/Adverse Reactions: Allergies Allergy/AdvReac Type Severity Reaction Status Date / Time No Known Allergies Allergy Verified 10/05/15 19:39 - Medications Medications: Current Medications Sodium Chloride (Sodium Chloride 0.9%) 1,000 mls @ 150 mls/hr IV .[id number] STA Stop: 06/29/17 15:20 Last Admin: 06/29/17 08:42 Dose: 150 mls/hr Acetylcysteine 4,850 mg/ (Dextrose) 524.25 mls @ 131.063 mls/hr IVPB STAT STA Stop: 06/29/17 16:40 Acetylcysteine 9,700 mg/ (Dextrose) 1,048.5 mls @ 65.531 mls/hr IVPB ONCE ONE Stop: 06/30/17 10:59 Results - Vital Signs Recent Vital Signs: Last Vital Signs Temp 98.5 F 06/29/17 07:28 Pulse 100 H 06/29/17 12:13 Resp 14 06/29/17 12:13 BP 152/95 H 06/29/17 07:28 Pulse Ox 97 06/29/17 10:23 - Labs Result Diagrams: 06/29/17 08:35 06/29/17 09:40 Labs: Laboratory Results - last 24 hr 06/29/17 06/29/17 06/29/17 08:35 08:36 08:36 WBC 7.5 RBC 5.37 Hgb 16.0 Hct 46.2 MCV 86.1 MCH 29.8 MCHC 34.6 RDW 12.3 Plt Count 335 MPV 7.4 Neut % (Auto) 82.8 H Lymph % (Auto) 7.9 L [place] % (Auto) 8.8 Eos % (Auto) 0.3 Baso % (Auto) 0.2 Neut # 6.2 Lymph # 0.6 L [place] # 0.7 Eos # 0.0 Baso # 0.0 Neutrophils % (Manual) 81 H Band Neutrophils % 1 Lymphocytes % (Manual) 5 L Reactive Lymphs % 2 H Monocytes % (Manual) 11 H Platelet Estimate Normal RBC Morphology Normal PT INR APTT Sodium 141 Potassium 4.0 Chloride 104 Carbon Dioxide 25 Anion Gap 16 BUN 14 Creatinine 1.0 Est GFR ( Amer) > 60 Est GFR (Non-Af Amer) > 60 Random Glucose 116 H Calcium 9.9 Total Bilirubin AST ALT Alkaline Phosphatase Total Protein Albumin Globulin Albumin/Globulin Ratio Urine Color Urine Clarity Urine pH Ur Specific [place] Urine Protein Urine Glucose (UA) Urine Ketones Urine Blood Urine Nitrate Urine Bilirubin Urine Urobilinogen Ur Leukocyte Esterase Urine RBC (Auto) Urine Microscopic WBC Ur Squamous Epith Cells Salicylates Urine Opiates Screen Urine Methadone Screen Acetaminophen 44.0 H Ur Barbiturates Screen Ur Phencyclidine Scrn Ur Amphetamines Screen U Benzodiazepines Scrn U Oth Cocaine Metabols U Cannabinoids Screen Alcohol, Quantitative < 10 06/29/17 06/29/17 06/29/17 09:00 09:00 09:39 WBC RBC Hgb Hct MCV MCH MCHC RDW Plt Count MPV Neut % (Auto) Lymph % (Auto) [place] % (Auto) Eos % (Auto) Baso % (Auto) Neut # Lymph # [place] # Eos # Baso # Neutrophils % (Manual) Band Neutrophils % Lymphocytes % (Manual) Reactive Lymphs % Monocytes % (Manual) Platelet Estimate RBC Morphology PT INR APTT Sodium Potassium Chloride Carbon Dioxide Anion Gap BUN Creatinine Est GFR ( Amer) Est GFR (Non-Af Amer) Random Glucose Calcium Total Bilirubin AST ALT Alkaline Phosphatase Total Protein Albumin Globulin Albumin/Globulin Ratio Urine Color Yellow Urine Clarity Clear Urine pH 5.0 Ur Specific [place] 1.033 H Urine Protein Negative Urine Glucose (UA) Neg Urine Ketones Negative Urine Blood Negative Urine Nitrate Negative Urine Bilirubin Negative Urine Urobilinogen 0.2-1.0 Ur Leukocyte Esterase Neg Urine RBC (Auto) 1 Urine Microscopic WBC < 1 Ur Squamous Epith Cells < 1 Salicylates < 1.0 Urine Opiates Screen Negative Urine Methadone Screen Negative Acetaminophen Ur Barbiturates Screen Negative Ur Phencyclidine Scrn Negative Ur Amphetamines Screen Negative U Benzodiazepines Scrn Negative U Oth Cocaine Metabols Positive H U Cannabinoids Screen Negative Alcohol, Quantitative 06/29/17 06/29/17 09:40 09:40 WBC RBC Hgb Hct MCV MCH MCHC RDW Plt Count MPV Neut % (Auto) Lymph % (Auto) [place] % (Auto) Eos % (Auto) Baso % (Auto) Neut # Lymph # [place] # Eos # Baso # Neutrophils % (Manual) Band Neutrophils % Lymphocytes % (Manual) Reactive Lymphs % Monocytes % (Manual) Platelet Estimate RBC Morphology PT 10.9 INR 1.0 APTT 30.1 Sodium 139 Potassium 4.1 Chloride 105 Carbon Dioxide 26 Anion Gap 12 BUN 13 Creatinine 1.0 Est GFR ( Amer) > 60 Est GFR (Non-Af Amer) > 60 Random Glucose 111 H Calcium 9.5 Total Bilirubin 0.4 AST 50 ALT 72 Alkaline Phosphatase 59 Total Protein 7.6 Albumin 4.4 Globulin 3.3 Albumin/Globulin Ratio 1.3 Urine Color Urine Clarity Urine pH Ur Specific [place] Urine Protein Urine Glucose (UA) Urine Ketones Urine Blood Urine Nitrate Urine Bilirubin Urine Urobilinogen Ur Leukocyte Esterase Urine RBC (Auto) Urine Microscopic WBC Ur Squamous Epith Cells Salicylates Urine Opiates Screen Urine Methadone Screen Acetaminophen Ur Barbiturates Screen Ur Phencyclidine Scrn Ur Amphetamines Screen U Benzodiazepines Scrn U Oth Cocaine Metabols U Cannabinoids Screen Alcohol, Quantitative Assessment & Plan - Assessment and Plan (Free Text) Assessment: PT ON EVALUATION, MENTAL STATUS, AWAKE ALERT ORIENTED TO PLACE AND PERSON PT AT CURRENT MENTAL STATUS HAS THE CAPACITY TO MAKE DECISION, UNDERSTANDS THE RISK OF POSSIBLE MEDICAL DECOMPENSATION AND RISK OF RELAPSE ON PAIN MEDICATIONS AND POSSIBLE CONSEQUENCES ON DISCHARGE PT PSYCHIATRICALY CLEARED AND IT IS UP TO THE MEDICAL TEAM TO DISCHARGE THE PATIENT ON MEDICAL CLEARANCE OR TO HAVE THE PATIENT TO SIGN FOR DISCHARGE AGAINST MEDICAL ADVISE - Date & Time Date: 06/29/17 Time: 15:03
[2017-06-29 15:55] VITALS: BP 155/89; RESP 16; TEMP 97.7; O2SAT 97
[2017-06-29] MEDS ORDERED: DEXTROSE 5% IVPB ONE ×2 (19:00)
[2017-06-29] MEDS ORDERED: ACETYLCYSTEINE IVPB ONE ×2 (19:00)
[2017-06-29] MEDS ORDERED: WATER IVPB ONE ×2 (19:00)
--- NOTE | 2017-06-29 21:51 | CP.PCM.HP ---
<Anita Alston - Last Filed: 06/29/17 22:04> History of Present Illness - History of Present Illness History of Present Illness: 27 year old male, with a past medical history of chronic back problems, and herniated disc, who was brought to the emergency department by EMS accompanied by mother and girlfriend after patient took an unknown amount of Zoldipem and Mirtazapine in order to sleep last night. He is on 1:1. UDS showed + cocaine and a Acetaminophen level of 44. Home meds only include Remeron and Ambien, but mother states he takes Percocet, too. Present on Admission - Present on Admission Any Indicators Present on Admission: No History of DVT/PE: No History of Uncontrolled Diabetes: No Urinary Catheter: No Decubitus Ulcer Present: No Review of Systems - Review of Systems All systems: reviewed and no additional remarkable complaints except (as per HPI ) Past Patient History - Infectious Disease Hx of Infectious Diseases: None - Past Social History Smoking Status: Current Some Days Smoker - CARDIAC Hx Cardiac Disorders: No - PULMONARY Hx Respiratory Disorders: No Hx Tuberculosis: No - NEUROLOGICAL Hx Seizures: No - ENDOCRINE/METABOLIC Hx Endocrine Disorders: No - HEMATOLOGICAL/ONCOLOGICAL Hx Blood Disorders: No Hx Cancer: No Hx Human Immunodeficiency Virus (HIV): No - MUSCULOSKELETAL/RHEUMATOLOGICAL Hx Musculoskeletal Disorders: Yes Hx Falls: Yes Hx Fractures: Yes Other/Comment: Chronic back pain - GASTROINTESTINAL Hx Gastrointestinal Disorders: No - GENITOURINARY/GYNECOLOGICAL Hx Sexually Transmitted Disorders: No - PSYCHIATRIC Hx Psychophysiologic Disorder: Yes Hx Anxiety: Yes Hx Depression: Yes Hx Substance Use: Yes - SURGICAL HISTORY Hx Surgeries: Yes Other/Comment: left ankle surgery 2014 - ANESTHESIA Hx Anesthesia: Yes Hx Anesthesia Reactions: No Meds Allergies/Adverse Reactions: Allergies Allergy/AdvReac Type Severity Reaction Status Date / Time No Known Allergies Allergy Verified 10/05/15 19:39 Physical Exam - Constitutional Appears: No Acute Distress - ENT Exam ENT Exam: Mucous Membranes Moist - Respiratory Exam Respiratory Exam: Clear to Auscultation Bilateral, NORMAL BREATHING PATTERN. absent: Rales, Rhonchi, Wheezes, Respiratory Distress - Cardiovascular Exam Cardiovascular Exam: Tachycardia, REGULAR RHYTHM, +S1, +S2 - GI/Abdominal Exam GI & Abdominal Exam: Normal Bowel Sounds, Soft. absent: Distended, Guarding, Rigid, Tenderness - Extremities Exam Extremities exam: Positive for: normal inspection. Negative for: calf tenderness, pedal edema - Neurological Exam Neurological exam: Alert, Oriented x3 Additional comments: restlessness Results - Vital Signs Recent Vital Signs: Last Vital Signs Temp 97.7 F 06/29/17 11:57 Pulse 90 06/29/17 14:00 Resp 16 06/29/17 14:00 BP 155/89 H 06/29/17 14:00 Pulse Ox 97 06/29/17 14:00 - Labs Result Diagrams: 06/29/17 08:35 06/29/17 09:40 Labs: Laboratory Results - last 24 hr 06/29/17 06/29/17 06/29/17 08:35 08:36 08:36 WBC 7.5 RBC 5.37 Hgb 16.0 Hct 46.2 MCV 86.1 MCH 29.8 MCHC 34.6 RDW 12.3 Plt Count 335 MPV 7.4 Neut % (Auto) 82.8 H Lymph % (Auto) 7.9 L [place] % (Auto) 8.8 Eos % (Auto) 0.3 Baso % (Auto) 0.2 Neut # 6.2 Lymph # 0.6 L [place] # 0.7 Eos # 0.0 Baso # 0.0 Neutrophils % (Manual) 81 H Band Neutrophils % 1 Lymphocytes % (Manual) 5 L Reactive Lymphs % 2 H Monocytes % (Manual) 11 H Platelet Estimate Normal RBC Morphology Normal PT INR APTT Sodium 141 Potassium 4.0 Chloride 104 Carbon Dioxide 25 Anion Gap 16 BUN 14 Creatinine 1.0 Est GFR ( Amer) > 60 Est GFR (Non-Af Amer) > 60 Random Glucose 116 H Calcium 9.9 Total Bilirubin AST ALT Alkaline Phosphatase Total Protein Albumin Globulin Albumin/Globulin Ratio Urine Color Urine Clarity Urine pH Ur Specific [place] Urine Protein Urine Glucose (UA) Urine Ketones Urine Blood Urine Nitrate Urine Bilirubin Urine Urobilinogen Ur Leukocyte Esterase Urine RBC (Auto) Urine Microscopic WBC Ur Squamous Epith Cells Salicylates Urine Opiates Screen Urine Methadone Screen Acetaminophen 44.0 H Ur Barbiturates Screen Ur Phencyclidine Scrn Ur Amphetamines Screen U Benzodiazepines Scrn U Oth Cocaine Metabols U Cannabinoids Screen Alcohol, Quantitative < 10 06/29/17 06/29/17 06/29/17 09:00 09:00 09:39 WBC RBC Hgb Hct MCV MCH MCHC RDW Plt Count MPV Neut % (Auto) Lymph % (Auto) [place] % (Auto) Eos % (Auto) Baso % (Auto) Neut # Lymph # [place] # Eos # Baso # Neutrophils % (Manual) Band Neutrophils % Lymphocytes % (Manual) Reactive Lymphs % Monocytes % (Manual) Platelet Estimate RBC Morphology PT INR APTT Sodium Potassium Chloride Carbon Dioxide Anion Gap BUN Creatinine Est GFR ( Amer) Est GFR (Non-Af Amer) Random Glucose Calcium Total Bilirubin AST ALT Alkaline Phosphatase Total Protein Albumin Globulin Albumin/Globulin Ratio Urine Color Yellow Urine Clarity Clear Urine pH 5.0 Ur Specific [place] 1.033 H Urine Protein Negative Urine Glucose (UA) Neg Urine Ketones Negative Urine Blood Negative Urine Nitrate Negative Urine Bilirubin Negative Urine Urobilinogen 0.2-1.0 Ur Leukocyte Esterase Neg Urine RBC (Auto) 1 Urine Microscopic WBC < 1 Ur Squamous Epith Cells < 1 Salicylates < 1.0 Urine Opiates Screen Negative Urine Methadone Screen Negative Acetaminophen Ur Barbiturates Screen Negative Ur Phencyclidine Scrn Negative Ur Amphetamines Screen Negative U Benzodiazepines Scrn Negative U Oth Cocaine Metabols Positive H U Cannabinoids Screen Negative Alcohol, Quantitative 06/29/17 06/29/17 09:40 09:40 WBC RBC Hgb Hct MCV MCH MCHC RDW Plt Count MPV Neut % (Auto) Lymph % (Auto) [place] % (Auto) Eos % (Auto) Baso % (Auto) Neut # Lymph # [place] # Eos # Baso # Neutrophils % (Manual) Band Neutrophils % Lymphocytes % (Manual) Reactive Lymphs % Monocytes % (Manual) Platelet Estimate RBC Morphology PT 10.9 INR 1.0 APTT 30.1 Sodium 139 Potassium 4.1 Chloride 105 Carbon Dioxide 26 Anion Gap 12 BUN 13 Creatinine 1.0 Est GFR ( Amer) > 60 Est GFR (Non-Af Amer) > 60 Random Glucose 111 H Calcium 9.5 Total Bilirubin 0.4 AST 50 ALT 72 Alkaline Phosphatase 59 Total Protein 7.6 Albumin 4.4 Globulin 3.3 Albumin/Globulin Ratio 1.3 Urine Color Urine Clarity Urine pH Ur Specific [place] Urine Protein Urine Glucose (UA) Urine Ketones Urine Blood Urine Nitrate Urine Bilirubin Urine Urobilinogen Ur Leukocyte Esterase Urine RBC (Auto) Urine Microscopic WBC Ur Squamous Epith Cells Salicylates Urine Opiates Screen Urine Methadone Screen Acetaminophen Ur Barbiturates Screen Ur Phencyclidine Scrn Ur Amphetamines Screen U Benzodiazepines Scrn U Oth Cocaine Metabols U Cannabinoids Screen Alcohol, Quantitative Assessment & Plan (1) Drug overdose Assessment and Plan: ICU unit Acetadote as per Poison Control recs. IVF hydration. Neurochecks/ Seizure precautions. Maintain 1:1 observation Psychiatry eval. Status: Acute (2) H/O bipolar disorder Assessment and Plan: Psych evaluation Status: Chronic (3) Chronic back pain Assessment and Plan: h/o Chronic LBP syndrome with Herniated Disc Disease 2 Fall 3 yrs ago. Pain management consult appreciated, f/u recommendations Would hold narcotics for pain control if possible. Status: Chronic - Date & Time Date: 06/29/17 Time: 12:45 <Steffen rFancis K - Last Filed: 06/30/17 11:22> Results - Vital Signs Recent Vital Signs: Last Vital Signs Temp 97.7 F 06/29/17 11:57 Pulse 100 H 06/30/17 09:59 Resp 16 06/29/17 14:00 BP 155/89 H 06/29/17 14:00 Pulse Ox 97 06/30/17 09:59 - Labs Result Diagrams: 06/29/17 08:35 06/29/17 09:40 Assessment & Plan - Assessment and Plan (Free Text) Assessment: Patient was personally seen and examined by me in rounds with residents. Available labs and diagnostic data reviewed. Case, Patient's condition and management plan discussed with residents in rounds. Agree with resident's progress note. Plan: As ordered.
[2017-06-30 09:56] VITALS: PULSE 100
--- NOTE | 2017-06-30 19:26 | CARD ---
APPROVED REPORT EKG Measurement Heart [id number] <Conclusion> Sinus tachycardia Cannot rule out Anterior infarct, age undetermined Abnormal ECG
--- NOTE | 2017-06-30 19:30 | CARD ---
APPROVED REPORT EKG Measurement Heart [id number] <Conclusion> Normal sinus rhythm Normal ECG
== END 2017-06-29 15:30 | disposition left against medical advice (07) | DRG 449 ==
LOC: H.ER 07:01 → H.ERHOLD 10:41 → H.ICU/CCU 11:26
PROVIDERS: ADMIT Internal Medicine; ATTEND Internal Medicine
DX: T39.1X1A Poisoning by 4-Aminophenol derivatives, accidental (unintentional), initial encounter (principal); F11.10 Opioid abuse, uncomplicated; F31.9 Bipolar disorder, unspecified; F14.10 Cocaine abuse, uncomplicated; F12.90 Cannabis use, unspecified, uncomplicated; F63.9 Impulse disorder, unspecified; G89.29 Other chronic pain; Z91.19 Patient's noncompliance with other medical treatment and regimen; F17.200 Nicotine dependence, unspecified, uncomplicated; M51.9 Unspecified thoracic, thoracolumbar and lumbosacral intervertebral disc disorder; F41.9 Anxiety disorder, unspecified; Z91.81 History of falling